=== PATIENT | male | born 1950 | race Caucasian/White ===

== ENCOUNTER 2021-07-04 23:41 | Emergency (ER) | payer MEDICARE, BC ==
[~2021-07-04] VITALS: Ht 160 cm; Wt 61.2 kg
[2021-07-04] MEDS ORDERED: OMEPRAZOLE 20 M20 M1 PO (23:49)
[2021-07-04] MEDS ORDERED: SILDENAFIL20 MG PO (23:49)
[2021-07-05 00:31] VITALS: BP 147/64
== END 2021-07-05 00:51 | disposition left against medical advice (07) ==
LOC: M.ERS 23:41
DX: R50.9 Fever, unspecified (principal); Z53.21 Procedure and treatment not carried out due to patient leaving prior to being seen by health care provider

== ENCOUNTER 2021-07-26 09:08 | Emergency (ER) | payer MEDICARE, BC ==
[~2021-07-26] VITALS: Ht 172.7 cm; Wt 61.2 kg
[~2021-07-26 09:08] MED LIST: OMEPRAZOLE 20 M20 M1 PO; SILDENAFIL20 MG PO
[2021-07-26 10:29] VITALS: BP 130/70
== END 2021-07-26 10:31 | disposition home or self-care (01) ==
LOC: M.ERS 09:08
DX: K59.00 Constipation, unspecified (principal); Z85.46 Personal history of malignant neoplasm of prostate; Z86.16 Personal history of COVID-19; Z79.899 Other long term (current) drug therapy; Z98.890 Other specified postprocedural states; Z91.041 Radiographic dye allergy status